=== PATIENT | male | born 1990 | race Caucasian/White ===

== ENCOUNTER 2018-01-06 10:46 | Emergency (ER) | payer MEDICAID ==
[~2018-01-06] VITALS: Ht 162.6 cm; Wt 62.6 kg
--- NOTE | 2018-01-06 10:58 | NUR ---
PT AMBULATES TO BED 1
[2018-01-06 11:01] VITALS: BP 129/89
[2018-01-06] MEDS ORDERED: NACL 0.9% 2,000 ML IV SCH (11:39)
[2018-01-06] MEDS ORDERED: NACL 0.9% 1,000 ML IV SCH (11:39)
[2018-01-06] MEDS ORDERED: KETOROLAC 30 MG/ML VIAL IVP ONE (11:40)
[2018-01-06] MEDS ORDERED: fentaNYL 0.05 MG/ML VIAL IVP ONE (11:40)
[2018-01-06] MEDS ORDERED: cefTRIAXone 1,000 MG in DEXT 5% MINI-BAG PLUS 50 ML IV ONE (11:40)
[2018-01-06] MEDS ORDERED: ONDANSETRON 4 MG/2 ML VIAL IVP ONE (11:40)
[2018-01-06] MEDS ORDERED: PROMETHAZINE 25 MG/ML VIAL IM ONE (11:40)
[2018-01-06] MEDS ORDERED: cefTRIAXone 1,000 MG VIAL ONE (11:58)
[2018-01-06 12:18] LABS: BASOPHILS % (AUTO) 0.7 % (0.0-2.0); EOSINOPHILS % (AUTO) 0.2 % (0.0-4.0); HEMATOCRIT 44.1 % (36-52); HEMOGLOBIN 15.2 g/dL (12.0-18.0); LYMPHOCYTES # (AUTO) 0.9 K/uL (2.0-11.5); LYMPHOCYTES % (AUTO) 12.8 % (20.5-51.1); MEAN CORPUSCULAR HEMOGLOBIN 32 pg (27-31); MEAN CORPUSCULAR HGB CONC 34 g/dL (33-37); MEAN CORPUSCULAR VOLUME 94.1 fL (80-94); MONOCYTES # (AUTO) 0.3 K/uL (0.8-1.0); MONOCYTES % (AUTO) 4.3 % (1.7-9.3); NEUTROPHILS # (AUTO) 5.9 K/uL (1.8-7.7); PLATELET COUNT (AUTO) 267 K/uL (140-450); RED BLOOD CELL COUNT(AUTO) 4.68 MIL/uL (4.20-6.10); RED CELL DISTRIBUTION WIDTH 12.8 % (11.6-13.7); WHITE BLOOD COUNT (AUTO) 7.3 K/uL (4.8-10.8)
--- NOTE | 2018-01-06 12:40 | NUR ---
ultrasount at bedside
[2018-01-06 12:41] LABS: ANION GAP 8.1 (8-16); CARBON DIOXIDE 29.7 mmol/L (21-32); CREATININE 0.7 mg/dL (0.7-1.3); POTASSIUM 3.8 mmol/L (3.5-5.1)
[2018-01-06 12:51] LABS: PROTHROMBIN TIME 10.1 secs (10.8-13.4)
[2018-01-06 12:55] LABS: ALBUMIN 4.5 g/dL (3.4-5.0); TOTAL BILIRUBIN 0.5 mg/dL (0.0-1.0)
--- NOTE | 2018-01-06 13:10 | NUR ---
pt ambulated to bathroom in stable condition
--- NOTE | 2018-01-06 13:14 | NUR ---
pt to ct via w/c in stable condition
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
[2018-01-06 14:32] VITALS: BP 129/85
--- NOTE | 2018-01-06 14:32 | NUR ---
Patient discharged with v/s stable. Written and verbal after care instructions given and explained. Patient alert, oriented and verbalized understanding of instructions. Ambulatory with steady gait. All questions addressed prior to discharge. ID band removed. Patient advised to follow up with PMD. Rx of NEXIUM AND REGLAN given. Patient educated on indication of medication including possible reaction and side effects. Opportunity to ask questions provided and answered.
[2018-01-06 14:56] LABS: APPEARANCE,URINE CLEAR (CLEAR); BILIRUBIN,URINE NEGATIVE (NEGATIVE); BLOOD, URINE NEGATIVE (NEGATIVE); COLOR,URINE OTHER (YELLOW); LEUKOCYTE ESTERASE ,URINE NEGATIVE (NEGATIVE); NITRITE, URINE NEGATIVE (NEGATIVE); UGLUCOSE NEGATIVE (NEGATIVE)
[2018-01-06 15:11] LABS: BARBITURATE, URINE NEG. ng/ml (NEG <=200); BENZODIAZEPINE, URINE NEG. ng/mL (NEG <=200); CANNABINOID, URINE POS. ng/mL (NEG <=50); COCAINE, URINE NEG. ng/mL (NEG <=300); OPIATE, URINE NEG. ng/mL (NEG <=2000); PHENCYCLIDINE SCREEN,URINE NEG. ng/mL (NEG <=25)
== END 2018-01-06 14:32 | disposition home or self-care (01) ==
LOC: MED 10:46
DX: K29.70 Gastritis, unspecified, without bleeding (principal)
CPT/HCPCS: 36415; 74176; 76705; 80053; 80305; 81003; 82150; 83605; 83690; 85025; 85610; 85730; 87040; 87086; 96361; 96365; 96372; 96374; 96375; 99285; J0696; J1885; J2405; J2550; J3010; J7030; J7060; Q0092

== ENCOUNTER 2018-09-25 17:19 | Emergency (ER) | payer SELFPAY ==
[~2018-09-25] VITALS: Ht 165.1 cm; Wt 73.6 kg
[2018-09-25 17:21] VITALS: BP 127/77
--- NOTE | 2018-09-25 17:24 | NUR ---
TO ED 03 WITH STEADY GAIT.
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
[2018-09-25] MEDS ORDERED: KETOROLAC 60 MG/2 ML VIAL IM ONE (18:05)
--- NOTE | 2018-09-25 18:14 | NUR ---
TO CT VIA [facility]
--- NOTE | 2018-09-25 19:10 | NUR ---
REPORT GIVEN TO DIANE SANDERS FOR TRANSFER OF CARE
--- NOTE | 2018-09-25 19:11 | NUR ---
REPORT GIVEN TO DIANE SANDERS FOR TRANSFER OF CARE
[2018-09-25] MEDS ORDERED: oxyCODONE/APAP 5/325 MG 1 TAB TAB PO ONE (19:45)
--- NOTE | 2018-09-25 20:15 | NUR ---
Patient discharged with v/s stable. Patient acting appropriatly, states pain 7/10 at this time, feels more relief from pain and states coping at this time. Written and verbal after care instructions given and explained. Patient alert, oriented and verbalized understanding of instructions. Ambulatory with steady gait. All questions addressed prior to discharge. ID band removed. Patient advised to follow up with PMD. Rx of Percocet, and EC-Naprosyn given. Patient educated on indication of medication including possible reaction and side effects. Opportunity to ask questions provided and answered.
[2018-09-25 20:16] VITALS: BP 110/68
== END 2018-09-25 20:15 | disposition home or self-care (01) ==
LOC: MED 17:19
DX: S00.83XA Contusion of other part of head, initial encounter (principal); S16.1XXA Strain of muscle, fascia and tendon at neck level, initial encounter; S00.81XA Abrasion of other part of head, initial encounter; K21.9 Gastro-esophageal reflux disease without esophagitis; V43.52XA Car driver injured in collision with other type car in traffic accident, initial encounter; Y93.89 Activity, other specified; Y92.410 Unspecified street and highway as the place of occurrence of the external cause; Y99.8 Other external cause status
CPT/HCPCS: 70450; 70486; 72125; 96372; 99284; J1885

== ENCOUNTER 2020-07-10 08:03 | Emergency (ER) | payer MEDICAID ==
[~2020-07-10] VITALS: Ht 162.6 cm; Wt 72.6 kg
[2020-07-10 08:08] VITALS: BP 133/88
[2020-07-10] MEDS ORDERED: IBUP-2213 PO (08:39)
[2020-07-10] MEDS ORDERED: KETOROLAC 60 MG/2 ML VIAL IM ONE (08:40)
[2020-07-10 09:13] VITALS: BP 133/88
== END 2020-07-10 09:13 | disposition home or self-care (01) ==
LOC: MED 08:03
DX: S90.32XA Contusion of left foot, initial encounter (principal); K21.9 Gastro-esophageal reflux disease without esophagitis; W22.8XXA Striking against or struck by other objects, initial encounter; Y93.89 Activity, other specified; Y92.89 Other specified places as the place of occurrence of the external cause; Y99.8 Other external cause status
CPT/HCPCS: 73630; 96372; 99283; J1885